=== PATIENT | male | born 1990 | race Caucasian/White ===

== ENCOUNTER 2016-12-25 16:35 | Inpatient (IN) | payer MEDICAID ==
[~2016-12-25] VITALS: Ht 177.8 cm; Wt 72.5 kg
[2016-12-25] MEDS ORDERED: ZOLPIDEM TARTRATE 10 MG TABLET PO PRN (19:45)
[2016-12-25] MEDS ORDERED: QUEtiapine FUMARATE 100 MG TABLET PO PRN (19:45)
[2016-12-25] MEDS ORDERED: LORazepam 1 MG TABLET PO PRN (19:45)
[2016-12-25 20:03] VITALS: BP 122/62
[2016-12-25 20:52] VITALS: BP 123/65
[2016-12-25] MEDS ORDERED: ONDANSETRON HCL 4 MG TABLET PO PRN (21:45)
[2016-12-25] MEDS: QUEtiapine FUMARATE 100 MG TABLET PO SCH (21:57)
[2016-12-26 06:00] VITALS: BP 127/66
[2016-12-26 08:11] LABS: BASOPHILS % (AUTO) 0.6 % (0.0-2.0); HEMATOCRIT 35.2 % (41-53); HEMOGLOBIN 11.8 g/dL (13.5-17.5); LYMPHOCYTES # (AUTO) 1.3 K/uL (1.0-4.8); MEAN CORPUSCULAR HEMOGLOBIN 29.4 pg (26.0-34.0); MEAN CORPUSCULAR HGB CONC 33.6 G/dL (31.0-37.0); MEAN CORPUSCULAR VOLUME 87 fL (80-100); MONOCYTES # (AUTO) 0.6 K/uL (0.1-1.0); MONOCYTES % (AUTO) 8.5 % (2.0-9.0); NEUTROPHILS # (AUTO) 4.8 K/uL (1.8-7.7); NEUTROPHILS % (AUTO) 69.9 % (40.0-70.0); PLATELET COUNT (AUTO) 243 K/uL (150-450); RED BLOOD CELL COUNT(AUTO) 4.03 MIL/uL (4.50-5.90); RED CELL DISTRIBUTION WIDTH 14.3 % (11.5-14.5); WHITE BLOOD COUNT (AUTO) 6.9 K/uL (4.5-11.0)
[2016-12-26 08:42] LABS: HEMOGLOBIN A1C 5.1 % (4.5-6.2)
[2016-12-26 08:48] LABS: APPEARANCE,URINE TURBID (CLEAR); GLUCOSE, URINE (UA) NEGATIVE (NEGATIVE); KETONES,URINE NEGATIVE (NEGATIVE); LEUKOCYTE ESTERASE ,URINE TRACE (NEGATIVE); OCCULT BLOOD,URINE NEGATIVE (NEGATIVE); PH,URINE 7.5 (5.0-8.0); PROTEIN,URINE NEGATIVE (NEGATIVE)
[2016-12-26 08:50] LABS: CHOL/HDL RATIO 2.4 (4.2-7.3); THYROID STIMULATING HORMONE 0.73 uIU/mL (0.36-3.74)
[2016-12-26 09:07] VITALS: BP 128/64
[2016-12-26 09:07] LABS: ADD UA MICROSCOPIC YES
[2016-12-26 09:08] LABS: RBC,URINE None Seen /HPF (0-2)
[2016-12-26 09:10] LABS: AMORPHOUS SEDIMENT,UR Many /LPF (None Seen); CALCIUM OXALATE CRYSTALS,UR Rare /LPF (None Seen)
[2016-12-26] MEDS: SULFAMETHOX/TRIMETH DS 800-160 MG/TABLET PO SCH ×2 (09:22→17:33)
[2016-12-26] MEDS: QUEtiapine FUMARATE 100 MG TABLET PO SCH ×2 (09:23→20:00)
[2016-12-26] MEDS: SERTRALINE HCL 100 MG TABLET PO SCH (09:23)
[2016-12-26 16:56] VITALS: BP 107/65
[2016-12-27 00:30] VITALS: BP 118/70
[2016-12-27] MEDS: SERTRALINE HCL 100 MG TABLET PO SCH (08:35)
[2016-12-27] MEDS: SULFAMETHOX/TRIMETH DS 800-160 MG/TABLET PO SCH ×2 (08:35→16:41)
[2016-12-27] MEDS: QUEtiapine FUMARATE 100 MG TABLET PO SCH ×2 (08:35→20:38)
[2016-12-27 09:02] VITALS: BP 118/66
[2016-12-27 16:43] VITALS: BP 118/62
[2016-12-27] MEDS: ACETAMINOPHEN 325 MG TABLET PO PRN (20:41)
[2016-12-28 00:10] VITALS: BP 130/73
[2016-12-28 07:35] VITALS: BP 108/82
[2016-12-28] MEDS: ACETAMINOPHEN 325 MG TABLET PO PRN ×2 (07:45→17:53)
[2016-12-28 08:26] VITALS: BP 109/89
[2016-12-28] MEDS: QUEtiapine FUMARATE 100 MG TABLET PO SCH ×2 (08:34→20:41)
[2016-12-28] MEDS: SULFAMETHOX/TRIMETH DS 800-160 MG/TABLET PO SCH ×2 (08:34→16:14)
[2016-12-28] MEDS: SERTRALINE HCL 100 MG TABLET PO SCH (08:35)
[2016-12-28] MEDS ORDERED: QUET100T PO (11:58)
[2016-12-28] MEDS ORDERED: SERT50TA12 PO (11:58)
[2016-12-28 16:47] VITALS: BP 127/66
[2016-12-28 17:51] VITALS: BP 122/70
[2016-12-29 01:58] VITALS: BP 130/72
[2016-12-29] MEDS: SULFAMETHOX/TRIMETH DS 800-160 MG/TABLET PO SCH (09:06)
[2016-12-29] MEDS: SERTRALINE HCL 100 MG TABLET PO SCH (09:06)
[2016-12-29] MEDS: QUEtiapine FUMARATE 100 MG TABLET PO SCH (09:06)
[2016-12-29 09:09] VITALS: BP 123/76
[2016-12-29] MEDS ORDERED: SULF1TAB42 PO (13:12)
== END 2016-12-29 13:50 | disposition home or self-care (01) | DRG 750 ==
LOC: B2S 19:30
DX: F25.1 Schizoaffective disorder, depressive type (principal); R45.851 Suicidal ideations; N39.0 Urinary tract infection, site not specified; D64.9 Anemia, unspecified; F12.10 Cannabis abuse, uncomplicated; Z83.3 Family history of diabetes mellitus
CPT/HCPCS: 80307; 83036; 84439; 84443

== ENCOUNTER 2016-12-28 11:31 | Emergency (ER) | payer MEDICAID, OTHER ==
[~2016-12-28] VITALS: Ht 177.8 cm; Wt 79.5 kg
[2016-12-28] MEDS ORDERED: QUET100T PO (11:58)
[2016-12-28] MEDS ORDERED: SERT50TA12 PO (11:58)
[2016-12-28] MEDS ORDERED: POVIDONE-IODINE 10% 120 ML SOLUTION TP ONE (12:00)
[2016-12-28] MEDS ORDERED: IBUPROFEN 600 MG TABLET PO ONE (12:00)
[2016-12-28] MEDS ORDERED: LIDOCAINE HCL 1% 10 ML VIAL INJ ONE (12:00)
[2016-12-28 12:51] VITALS: BP 131/73
[2016-12-29] MEDS ORDERED: SULF1TAB42 PO (13:12)
== END 2016-12-28 12:53 | disposition other institution (70) ==
LOC: EMS 11:33
DX: L02.411 Cutaneous abscess of right axilla (principal); F31.9 Bipolar disorder, unspecified
CPT/HCPCS: 10060; 99285; J3490

== ENCOUNTER 2023-12-25 23:44 | Emergency (ER) | payer MEDICAID, OTHER ==
[~2023-12-25] VITALS: Ht 165.1 cm; Wt 113.6 kg
[~2023-12-25 23:44] MED LIST: QUET100T PO; SERT-158 PO; SULF1TAB42 PO
[2023-12-25 23:55] VITALS: TEMP 98.7
[2023-12-25] MEDS ORDERED: LURA40TA2 PO (23:56)
[2023-12-26 00:18] LABS: BASOPHILS % (AUTO) 0.9 % (0.0-2.0); EOSINOPHILS % (AUTO) 6.1 % (1.0-6.0); HEMATOCRIT 42.8 % (41-53); HEMOGLOBIN 14.3 g/dL (13.5-17.5); LYMPHOCYTES # (AUTO) 2.1 K/uL (1.0-4.8); LYMPHOCYTES % (AUTO) 30.1 % (22.0-44.0); MEAN CORPUSCULAR HEMOGLOBIN 28.6 pg (26.0-34.0); MEAN CORPUSCULAR HGB CONC 33.3 G/dL (31.0-37.0); MEAN CORPUSCULAR VOLUME 86 fL (80-100); MONOCYTES # (AUTO) 0.7 K/uL (0.1-1.0); MONOCYTES % (AUTO) 10.2 % (2.0-9.0); NEUTROPHILS # (AUTO) 3.7 K/uL (1.8-7.7); NEUTROPHILS % (AUTO) 52.7 % (40.0-70.0); PLATELET COUNT (AUTO) 302 K/uL (150-450); RED BLOOD CELL COUNT(AUTO) 4.99 MIL/uL (4.50-5.90); RED CELL DISTRIBUTION WIDTH 14.2 % (11.5-14.5); WHITE BLOOD COUNT (AUTO) 7.1 K/uL (4.5-11.0)
[2023-12-26 00:27] LABS: ANION GAP 8 mmol/L (8-16); CALCIUM, TOTAL 8.7 mg/dL (8.8-10.5); CARBON DIOXIDE 28 mmol/L (22-29); CHLORIDE 104 mmol/L (98-107); CREATININE 0.92 mg/dL (0.60-1.30); GLOMERULAR FILTR. RATE CALC > 60 mL/min (>60); GLUCOSE,RANDOM 129 mg/dL (70-110); SODIUM SERUM 140 mmol/L (136-145); UREA NITROGEN, BLOOD 11 mg/dL (7-18)
[2023-12-26 00:35] LABS: ALCOHOL, BLOOD (SERUM) < 3 mg/dL (0-10)
[2023-12-26 02:21] VITALS: BP 144/80; PULSE 83; RESP 20; O2SAT 99
[2023-12-26] MEDS: LORazepam 1 MG TABLET PO ONE (02:21)
[2023-12-26 06:52] LABS: PH,URINE DRUG SCREEN 5.5 (5.0-8.0)
[2023-12-26 06:59] LABS: ALCOHOL, URINE DRUG SCREEN NEGATIVE (NEGATIVE); AMPHET/METH SCREEN,URINE NEGATIVE (NEGATIVE); BARBITURATE SCREEN, URINE NEGATIVE (NEGATIVE); BENZODIAZEPINES SCREEN,URINE NEGATIVE (NEGATIVE); CANNABINOID SCREEN,URINE NEGATIVE (NEGATIVE); COCAINE SCREEN,URINE NEGATIVE (NEGATIVE); METHADONE SCREEN, URINE NEGATIVE (NEGATIVE); OPIATE SCREEN,URINE NEGATIVE (NEGATIVE); PHENCYCLIDINE SCREEN,URINE NEGATIVE (NEGATIVE)
== END 2023-12-26 06:40 | disposition home or self-care (01) ==
LOC: EMS 23:44
DX: F31.9 Bipolar disorder, unspecified (principal); Z79.899 Other long term (current) drug therapy
CPT/HCPCS: 99284; 80048; 85025; 36415; 80307; G0480

== ENCOUNTER 2024-06-27 06:52 | Inpatient (IN) | payer MEDICAID ==
[~2024-06-27] VITALS: Ht 177.8 cm; Wt 108.0 kg
[~2024-06-27 06:52] MED LIST changes: +LURA40TA2 PO; -QUET100T PO; -SERT-158 PO; -SULF1TAB42 PO
[2024-06-27] MEDS ORDERED: HALOPERIDOL 5 MG TABLET PO PRN (08:15)
[2024-06-27] MEDS ORDERED: ZOLPIDEM TARTRATE 10 MG TABLET PO PRN (08:15)
[2024-06-27] MEDS ORDERED: LORazepam 2 MG TABLET PO PRN (08:15)
[2024-06-27 08:51] VITALS: BP 121/73; PULSE 65; RESP 18; TEMP 98.5; O2SAT 97
[2024-06-27] MEDS: LURASIDONE HCL 20 MG TABLET PO SCH (20:16)
[2024-06-27 20:45] VITALS: BP 127/68; PULSE 69; RESP 18; TEMP 98.4; O2SAT 97
[2024-06-27] MEDS ORDERED: LURASIDONE HCL 60 MG TABLET PO SCH (21:00)
[2024-06-27] MEDS ORDERED: ACETAMINOPHEN 325 MG TABLET PO PRN (23:00)
[2024-06-27] MEDS ORDERED: MAG HYDROX/ALUMINUM HYD/SIMETH ES 30 ML SUSPENSION UDCUP PO PRN (23:00)
[2024-06-27] MEDS ORDERED: OMEPRAZOLE 20 MG CAPSULE PO PRN (23:00)
[2024-06-27] MEDS ORDERED: BACITRACIN 28 GM OINTMENT TP PRN (23:00)
[2024-06-27] MEDS ORDERED: DOCUSATE SODIUM 100 MG CAPSULE PO PRN (23:00)
[2024-06-27] MEDS ORDERED: ONDANSETRON 4 MG TABLET PO PRN (23:00)
[2024-06-27] MEDS ORDERED: CloNIDine HCL 0.1 MG TABLET PO PRN (23:00)
[2024-06-27] MEDS ORDERED: MAGNESIUM HYDROXIDE SUSPENSION 30 ML UDCUP PO PRN (23:00)
[2024-06-27] MEDS ORDERED: PETROLATUM,WHITE 28 GM JELLY TP PRN (23:00)
[2024-06-27] MEDS ORDERED: BENZOCAINE/MENTHOL [CEPACOL] LOZENGE PO PRN (23:00)
[2024-06-27] MEDS ORDERED: ALBUTEROL SULFATE HFA 90 MCG/PUFF 8 GM INHALER IH PRN (23:00)
[2024-06-27] MEDS ORDERED: LOPERAMIDE HCL 2 MG CAPSULE PO PRN (23:00)
[2024-06-27] MEDS ORDERED: IBUPROFEN 600 MG TABLET PO PRN (23:00)
[2024-06-28 08:59] LABS: BASOPHILS % (AUTO) 1.6 % (0.0-2.0); EOSINOPHILS % (AUTO) 4.9 % (1.0-6.0); HEMATOCRIT 45.4 % (41-53); HEMOGLOBIN 15.1 g/dL (13.5-17.5); LYMPHOCYTES # (AUTO) 1.7 K/uL (1.0-4.8); LYMPHOCYTES % (AUTO) 27.6 % (22.0-44.0); MEAN CORPUSCULAR HEMOGLOBIN 28.3 pg (26.0-34.0); MEAN CORPUSCULAR HGB CONC 33.3 G/dL (31.0-37.0); MEAN CORPUSCULAR VOLUME 85 fL (80-100); MONOCYTES # (AUTO) 0.5 K/uL (0.1-1.0); NEUTROPHILS # (AUTO) 3.6 K/uL (1.8-7.7); NEUTROPHILS % (AUTO) 57.9 % (40.0-70.0); PLATELET COUNT (AUTO) 295 K/uL (150-450); RED BLOOD CELL COUNT(AUTO) 5.34 MIL/uL (4.50-5.90); WHITE BLOOD COUNT (AUTO) 6.1 K/uL (4.5-11.0)
[2024-06-28 09:19] LABS: APPEARANCE,URINE CLEAR (CLEAR); BILIRUBIN,URINE NEGATIVE (NEGATIVE); COLOR,URINE LIGHT YELLOW (YELLOW); GLUCOSE, URINE (UA) NEGATIVE (NEGATIVE); KETONES,URINE NEGATIVE (NEGATIVE); LEUKOCYTE ESTERASE ,URINE NEGATIVE (NEGATIVE); NITRATE,URINE NEGATIVE (NEGATIVE); OCCULT BLOOD,URINE NEGATIVE (NEGATIVE); PH,URINE 6.5 (5.0-8.0); PH,URINE DRUG SCREEN 6.5 (5.0-8.0); PROTEIN,URINE NEGATIVE (NEGATIVE); SPECIFIC GRAVITIY, URINE 1.024 (1.003-1.030); UROBILINOGEN,URINE <=1.0 mg/dL (<=1.0)
[2024-06-28 09:19] LABS: ALANINE AMINOTRANSFERASE 109 U/L (12-78); ALBUMIN 3.7 g/dL (3.4-5.0); ALKALINE PHOSPHATASE 81 U/L (46-116); ANION GAP 7 mmol/L (8-16); ASPARTATE AMINOTRANSFERASE 40 U/L (15-37); BILIRUBIN,TOTAL 0.5 mg/dL (0.1-1.0); CALCIUM, TOTAL 9.1 mg/dL (8.8-10.5); CARBON DIOXIDE 29 mmol/L (22-29); CHLORIDE 103 mmol/L (98-107); CHOL/HDL RATIO 4.2 (4.2-7.3); CHOLESTEROL 172 mg/dL (131-200); CREATININE 0.71 mg/dL (0.60-1.30); FREE T4 (FREE THYROXINE) 1.03 ng/dL (0.76-1.46); GLOMERULAR FILTR. RATE CALC > 60 mL/min (>60); GLUCOSE,RANDOM 94 mg/dL (70-110); HDL CHOLESTEROL 41 mg/dL (40-60); LDL CHOL (CALC.) 107 mg/dL (0-130); SODIUM SERUM 139 mmol/L (136-145); T4 (THYROXINE) 9.3 mcg/dL (4.7-13.3); TOTAL PROTEIN, SERUM 7.7 g/dL (6.4-8.2); TRIGLYCERIDES 120 mg/dL (15-150); UREA NITROGEN, BLOOD 10 mg/dL (7-18)
[2024-06-28 09:24] LABS: ALCOHOL, URINE DRUG SCREEN NEGATIVE (NEGATIVE); AMPHET/METH SCREEN,URINE NEGATIVE (NEGATIVE); BARBITURATE SCREEN, URINE NEGATIVE (NEGATIVE); BENZODIAZEPINES SCREEN,URINE NEGATIVE (NEGATIVE); CANNABINOID SCREEN,URINE NEGATIVE (NEGATIVE); COCAINE SCREEN,URINE NEGATIVE (NEGATIVE); METHADONE SCREEN, URINE NEGATIVE (NEGATIVE); OPIATE SCREEN,URINE NEGATIVE (NEGATIVE); PHENCYCLIDINE SCREEN,URINE NEGATIVE (NEGATIVE)
[2024-06-28 09:26] VITALS: BP 124/67; PULSE 62; RESP 18; TEMP 98.1; O2SAT 99
[2024-06-28 20:22] VITALS: BP 121/78; PULSE 89; RESP 17; TEMP 97.7; O2SAT 95
[2024-06-29 08:39] VITALS: BP_SYST 122; BP_SYST 123; BP_DIAS 76; PULSE 63; RESP 18; TEMP 97.6; O2SAT 95
[2024-06-29 20:00] VITALS: BP 127/74; PULSE 80; RESP 17; TEMP 98.3; O2SAT 98
[2024-06-30 01:07] LABS: HEPATITIS C AB (EIA) Non Reactive (Non Reactive)
[2024-06-30 08:56] VITALS: BP 123/73; PULSE 72; RESP 17; TEMP 98.1; O2SAT 96
== END 2024-06-30 13:00 | disposition left against medical advice (07) | DRG 750 ==
LOC: B2S 07:52
PROVIDERS: ADMIT Psychiatry & Neurology Child & Adolescent Psychiatry; ATTEND Psychiatry & Neurology Child & Adolescent Psychiatry
PROC: GZ56ZZZ Individual Psychotherapy, Supportive (ICD-10-PCS; principal; 2024-06-27)
DX: F20.0 Paranoid schizophrenia (principal); F17.200 Nicotine dependence, unspecified, uncomplicated; I10 Essential (primary) hypertension; K21.9 Gastro-esophageal reflux disease without esophagitis; K59.00 Constipation, unspecified; Z53.29 Procedure and treatment not carried out because of patient's decision for other reasons
CPT/HCPCS: 80053; 80061; 80307; 81003; 84436; 84439; 85025; 86803; 87340